=== PATIENT | male | born 1965 | race Caucasian/White ===

== ENCOUNTER 2019-12-03 16:01 | Emergency (ER) | payer SELFPAY ==
[2019-12-03] MEDS ORDERED: TETANUS & DIPHTHERIA TOX,ADULT 0.5 ML VIAL ONE (16:49)
[2019-12-03] MEDS ORDERED: DERMABOND SKIN ADHESIVE TOP ONE (16:49)
--- NOTE | 2019-12-03 17:20 | ER ---
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 No ll1 LOC. Laceration to mid forehead, bleeding controlled. Coronavirus screen: Proceed with normal triage. Patient denies a cough. Patient denies shortness of breath or difficulty breathing. Patient denies measured and/or subjective temperature greater than 100.4F prior to today's visit. Patient denies travel on a cruise ship or to a country the [facility] currently lists as an affected area. Patient denies contact with known and/or suspected case of COVID-19. Ebola Screen: Patient denies travel to an Ebola-affected area in the 21 days before illness onset. Initial Sepsis Screen: Does the patient meet any 2 criteria? No. Patient's initial sepsis screen is negative. Does the patient have a suspected source of infection? No. Patient's initial sepsis screen is negative. Risk Assessment: Do you want to hurt yourself or someone else? Patient reports no desire to harm self or others. Onset of symptoms was December 03, 2019. 16:08 Method Of Arrival: Wheelchair ll1 16:08 Acuity: FRANCISCO JAVIER 3 ll1 Historical: - Allergies: 16:11 Sulfa (Sulfonamide Antibiotics); ll1 - PSHx: 16:11 pilonidal cyst repair; ll1 - Immunization history:: Last tetanus immunization: unknown. - Social history:: Smoking status: Patient/guardian denies using tobacco, the patient reports quitting approximately 20 years ago, Patient/guardian denies using alcohol, street drugs, tobacco products. Screenin:30 Abuse screen: Denies threats or abuse. Nutritional screening: No deficits noted. Tuberculosis screening: No symptoms or risk factors identified. Fall Risk None identified. 17:45 Abuse screen: Denies threats or abuse. Assessment: 16:40 General: Appears in no apparent distress. Behavior is calm, cooperative. Pain: Denies pain. Neuro: Level of Consciousness is awake, alert, Oriented to person, place, time, situation. Cardiovascular: Capillary refill < 3 seconds Patient's skin is warm and dry. Respiratory: Airway is patent Respiratory effort is even, unlabored. GI:. Derm: Skin is intact, is healthy with good turgor. Injury Description: Laceration sustained to top of head is clean, 0.5 to 2.5 cm long, bleeding moderately, was sustained 30-60 minutes ago. Vital Signs: 16:08 Resp 18; Temp 98.7; Weight 87.54 kg; Height 6 ft. 0 in. (182.88 cm); Pain 8/10; ll1 16:11 BP 183 / 128; Pulse 94; Pulse Ox 97% ; ll1 16:08 Body Mass Index 26.18 (87.54 kg, 182.88 cm) ll1 ED Course: 16:02 Patient arrived in ED. fj1 16:10 Triage completed. ll1 16:11 Arm band placed on. 1 16:23 Kaleigh Barnes FNP-C is [facility]. 16:23 Frank Glynn MD is Attending Physician. 16:39 Barb Cedeno, RN is Primary Nurse. 17:15 Assist provider with laceration repair on top of head that was 2.5 cm. or less using Dermabond. Performed by Kaleigh VAIL Patient tolerated well. Patient did not have IV access during this emergency room visit. 17:30 Patient has correct armband on for positive identification. Bed in low position. Call light in reach. Side rails up X 1. 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 Exp: 08/07/2021. Lot #: [id number]. } Route: IM; Site: right deltoid; 17:40 Follow up: Response: No adverse reaction Outcome: 17:20 Discharge ordered by . kb 17:35 Discharged to home ambulatory. 17:35 Condition: good 17:35 Discharge instructions given to patient, Instructed on discharge instructions, follow up and referral plans. Demonstrated understanding of instructions, follow-up care. 17:47 Patient left the ED. Signatures: Kaleigh Barnes FNP-C FNP-Florin Villarreal fj Barb Cedeno, RN RN Bang Rosenthal RN RN ll1
--- NOTE | 2019-12-03 17:20 | EDPHYS ---
Physician Documentation [facility] Name: Jersey Peña Age: 54 yrs Sex: Male : 1965 Arrival Date: 12/03/2019 Time: 16:02 Bed 19 Private MD: ED Physician Frank Glynn HPI: 12/02 17:18 This 54 yrs old Male presents to ER via Wheelchair with complaints of Fall kb Injury, Head Injury Without LOC-Adult. 17:18 Details of fall: The patient fell from an upright position, while walking. Onset: The kb symptoms/episode began/occurred just prior to arrival. Associated injuries: The patient sustained injury to the head, laceration, 2 cm(s), of the forehead. Severity of symptoms: At their worst the symptoms were mild, in the emergency department the symptoms are unchanged. The patient has not experienced similar symptoms in the past. The patient has not recently seen a physician. Pt was walking in a parking lot, tripped and fell. Hit his forehead on the concrete causing laceration. . Historical: - Allergies: 16:11 Sulfa (Sulfonamide Antibiotics); ll1 - PSHx: 16:11 pilonidal cyst repair; ll1 - Immunization history:: Last tetanus immunization: unknown. - Social history:: Smoking status: Patient/guardian denies using tobacco, the patient reports quitting approximately 20 years ago, Patient/guardian denies using alcohol, street drugs, tobacco products. ROS: 17:11 Constitutional: Negative for fever, chills, and weight loss, Cardiovascular: Negative kb for chest pain, palpitations, and edema, Respiratory: Negative for shortness of breath, cough, wheezing, and pleuritic chest pain, Abdomen/GI: Negative for abdominal pain, nausea, vomiting, diarrhea, and constipation, Back: Negative for injury and pain, MS/Extremity: Negative for injury and deformity, Neuro: Negative for headache, weakness, numbness, tingling, and seizure. 17:11 Skin: Positive for laceration(s), of the forehead. Exam: 17:11 Constitutional: This is a well developed, well nourished patient who is awake, alert, kb and in no acute distress. Chest/axilla: Normal chest wall appearance and motion. Nontender with no deformity. No lesions are appreciated. Cardiovascular: Regular rate and rhythm with a normal S1 and S2. No gallops, murmurs, or rubs. Normal PMI, no JVD. No pulse deficits. Respiratory: Lungs have equal breath sounds bilaterally, clear to auscultation and percussion. No rales, rhonchi or wheezes noted. No increased work of breathing, no retractions or nasal flaring. Abdomen/GI: Soft, non-tender, with normal bowel sounds. No distension or tympany. No guarding or rebound. No evidence of tenderness throughout. Back: No spinal tenderness. No costovertebral tenderness. Full range of motion. MS/ Extremity: Pulses equal, no cyanosis. Neurovascular intact. Full, normal range of motion. Neuro: Awake and alert, GCS 15, oriented to person, place, time, and situation. Cranial nerves II-XII grossly intact. Motor strength 5/5 in all extremities. Sensory grossly intact. Cerebellar exam normal. Normal gait. 17:11 Head/face: Noted is no obvious of injury or deformity except a laceration(s), that is superficial, that is linear, 2 cm(s), of the forehead. Vital Signs: 16:08 Resp 18; Temp 98.7; Weight 87.54 kg; Height 6 ft. 0 in. (182.88 cm); Pain 8/10; ll1 16:11 BP 183 / 128; Pulse 94; Pulse Ox 97% ; ll1 16:08 Body Mass Index 26.18 (87.54 kg, 182.88 cm) ll1 Laceration: 17:11 Wound Repair of 2cm ( 0.8in ) subcutaneous laceration to forehead. Linear shaped.. kb Distal neuro/vascular/tendon intact. Wound prep: Extensive cleansing with betadine by nurse, Wound irrigation with saline by nurse. Skin closed with thin layer Adhesive skin closure using Dermabond. Patient tolerated well. MDM: 16:31 Patient medically screened. kb 17:18 Data reviewed: vital signs, nurses notes. Data interpreted: Pulse oximetry: on room air kb is 97 %. Interpretation: normal. Counseling: I had a detailed discussion with the patient and/or guardian regarding: the historical points, exam findings, and any diagnostic results supporting the discharge/admit diagnosis, the need for outpatient follow up, a family practitioner, to return to the emergency department if symptoms worsen or persist or if there are any questions or concerns that arise at home. Refusal of service: The patient/guardian displays adequate decision making capability and despite a detailed discussion of alternatives, benefits, risks, and consequences refuses: CT Scan. 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 Exp: ah 08/07/2021. Lot #: [id number]. } Route: IM; Site: right deltoid; 17:40 Follow up: Response: No adverse reaction ah Disposition: 18:46 Co-signature as Attending Physician, Frank Glynn MD I agree with the assessment and kdr plan of care. Disposition: 12/03/19 17:20 Discharged to Home. Impression: Laceration without foreign body of scalp. - Condition is Stable. - Discharge Instructions: Laceration Care, Adult, Voza-he-Gagi, Head Injury, Adult, Woug-ow-Xzon. - Medication Reconciliation Form, Thank You Letter, Antibiotic Education, Prescription Opioid Use form. - Follow up: Emergency Department; When: As needed; Reason: Worsening of condition. Follow up: Private Physician; When: 2 - 3 days; Reason: Recheck today's complaints, Continuance of care, Re-evaluation by your physician. Signatures: Dispatcher [employer] EDWA Kaleigh Barnes, BOBBIN MARKER-C BOBBIN MARKER-Ckb Frank Glynn MD MD [facility] Barb Cedeno RN RN Bang Rosenthal RN RN ll1 Corrections: (The following items were deleted from the chart) 17:47 17:20 12/03/2019 17:20 Discharged to Home. Impression: Laceration without foreign body ah of scalp. Condition is Stable. Forms are Medication Reconciliation Form, Thank You Letter, Antibiotic Education, Prescription Opioid Use. Follow up: Emergency Department; When: As needed; Reason: Worsening of condition. Follow up: Private Physician; When: 2 - 3 days; Reason: Recheck today's complaints, Continuance of care, Re-evaluation by your physician. kb
[2019-12-03 17:51] VITALS: TEMP 98.7
[2019-12-03 17:53] VITALS: BP 183/128; O2SAT 97
== END 2019-12-03 17:47 | disposition home or self-care (01) ==
LOC: ER 16:01
PROC: 0JQ10ZZ Repair Face Subcutaneous Tissue and Fascia, Open Approach (ICD-10-PCS; principal; 2019-12-03)
DX: S01.81XA Laceration without foreign body of other part of head, initial encounter (principal); W19.XXXA Unspecified fall, initial encounter; Y93.01 Activity, walking, marching and hiking; Y92.481 Parking lot as the place of occurrence of the external cause; Z88.2 Allergy status to sulfonamides
CPT/HCPCS: 90471; 90714; 99283